=== PATIENT | female | born 1950 | race Caucasian/White ===

== ENCOUNTER 2024-11-27 07:49 | Emergency (ER) | payer OTHER, SELFPAY ==
[2024-11-27 07:50] VITALS: BP 158/90
[2024-11-27 09:17] VITALS: BP 156/52
--- NOTE | 2024-11-27 09:18 | ED.GENMED ---
History of Present Illness
General
Chief Complaint: Fall
Source: patient
Exam Limitations: none
Time Seen by Provider: 11/27/24 08:59
History of Present Illness
History of Present Illness:
73yo right hand dominant female with history of hyperlipidemia, GERD, and carpal tunnel presenting for evaluation after a fall. Patient was walking down the steps around 1 AM this morning in the dark. She missed a step and fell forward, down about
3 steps. She hit the left side of her jaw on the floor. She denies any loss of consciousness. No preceding dizziness or symptoms. She is presenting with pain in her left wrist, low back, bilateral rib cage, and left jaw. She denies any
shortness of breath, abdominal pain, headache, visual changes, vomiting. She does not take any blood thinners.
Phy Exam
General Physical Exam
General Presentation: well appearing and no apparent distress
General Skin: warm and dry
General Habitus: normal
General Mental: alert
ENT Exam
ENT Exam: TM's normal (No hemotympanum ), normocephalic and other (+L mandibular tenderness with mild amount of overlying swelling. No ecchymosis or deformity. Able to open/close jaw. No malocclusion or evidence of dental trauma. )
Additional ENT: No cervical spine tenderness
Eye Exam
Eye Exam: PERRL and conjunctiva normal
Pulmonary Exam
Pulmonary Exam: lungs clear, no respiratory distress, no crackles, no rhonchi, no wheezing and other (+Tenderness to bilateral posterior ribcage. No crepitus or skin changes. Bilateral breath sounds equal. )
Gastrointestinal Exam
Gastrointestinal Exam: non tender, soft and non distended
Neurological Exam
Neurological Exam: alert
Miya Coma Scale
Eye Opening: Spontaneous
Verbal Response: Oriented
Motor Response: Obeys Commands
GCS Total Score: 15
Musculoskeletal Exam
Musculoskeletal Exam: other (L wrist: No deformity. +Tenderness to ulnar styloid. ROM intact. 2+ radial pulse.)
Skin Exam
Skin Exam: normal color and warm/dry
Psychiatric Exam
Psychiatric Exam: normal mood/affect
Course
Orders/Labs/Results
Orders:
Orders
11/27/24 07:54
CR Lumbar Spine Comp Min 4 Vw* Urgent
Comment:
Reason For Exam: pain
Wrist, Left 3 Views CR [CR Wrist - Left Min 3 Views] Urgent
Comment:
Reason For Exam: pain
11/27/24 09:17
CT Cervical Spine W/o Iv Contr Urgent
Comment:
Reason For Exam: head injury, fall
CT Facial Bones W/o Iv Contras Urgent
Comment:
Reason For Exam: L jaw pain, fall
Ribs, Saurabh 4 View W/PA Chest [CR Ribs-saurabh 4 Vw W/pa Chest] Urgent
Comment:
Reason For Exam: bilateral posterior rib pain, fall
11/27/24 09:18
CT Head W/o Iv Contrast Urgent
Comment:
Reason For Exam: Head injury, fall
11/27/24 11:30
[place] Wrist Left-Treatment ONCE
Ibuprofen [Motrin] 600 mg PO NOW STA
Lidocaine [Lidocaine 4% Patch] 1 patch TOPICAL NOW STA
Apply Lidocaine patch(s) to:: low back
Vital Signs
Initial and Last Documented VS:
Initial Vital Signs
Temp Pulse Resp BP Pulse Ox
99.2 F 95 18 158/90 97
11/27/24 07:50 11/27/24 07:50 11/27/24 07:50 11/27/24 07:50 11/27/24 07:50
Last Documented Vital Signs
Temp Pulse Resp BP Pulse Ox
99.2 F 77 16 156/52 97
11/27/24 07:50 11/27/24 09:19 11/27/24 09:19 11/27/24 09:17 11/27/24 09:20
MDM/Problems Addressed
Differential Diagnosis Includes:
73yoF presenting after a mechanical fall down 3 steps at 1am this morning. C/o low back, rib, L wrist, and L jaw pain. No LOC and no blood thinners. She is hypertensive with otherwise stable vitals. She is awake, alert, with a GCS of 15. No external
signs of head trauma. Differential diagnosis includes: fracture, soft tissue injury, sprain
Initial ED plan: Check L wrist/lumbar spine/rib x-rays and CT head/facial bones/cervical spine.
*Pulse Oximetry
SaO2: 97
Oxygen Mode of Delivery: Room air
Patient hypoxic: no (97%)
*Critical Care Note
Total Time (30-74mins, 75-104mins- exclusive of procedures): Not Applicable
Update Note
Update Note:
Wrist x-ray showed no tiny density at the base of the fifth metacarpal, possibly degenerative vs. tiny avulsion fracture. Patient has no tenderness along the 5th metacarpal on exam so less likely fracture. No other injuries seen on imaging. Wrist
brace provided. Supportive care discussed. Advised f/u with PCP. Patient ambulated independently out of ED in stable condition.
ED Attending Note
-
Portions of this chart may have been created with voice recognition software.� Occasional wrong word or��sound alike� substitutions may have occurred due to the inherent limitations of voice recognition software.
Discharge Plan
Departure
Patient Disposition: Home (Routine Discharge)
Date of Disposition: 11/27/24
Time of Disposition: 11:31
Patient with high blood pressure during this ER visit?: Yes
Discharge Problem:
Fall down steps, Low back pain, Injury of left wrist
Instructions: Low back pain - ED discharge instructions
Referrals:
Jerry Perry MD [Family Provider, Family Practice]
Activity Restrictions/Additional Instructions:
Apply ice to affected area. Take Tylenol and ibuprofen as needed for pain. Use lidocaine patches daily (12 hours on, 12 hours off).
Please follow-up with your family doctor. Return to the ER with any new or worsening symptoms.
Interventions
Interventions:
*Risk Screen - Suicide Last Done: 11/27/24 07:50
*General Assessment Last Done: 11/27/24 07:50
*Neglect/Abuse Screening Last Done: 11/27/24 09:19
*ED- Fall Risk Assessment Last Done: 11/27/24 09:18
*ED COVID-19 Vaccine History Last Done: 11/27/24 09:18
*Nursing Disposition Last Done: 11/27/24 11:54
ED-Musculoskeletal Assessment Last Done: 11/27/24 09:19
ED- Neurological Assessment Last Done: 11/27/24 09:19
ED-Skin Assessment Last Done: 11/27/24 09:19
Discharge Date and Time
Discharge Date/Time: 11/27/24 11:57
Print Language: SERBIAN
[2024-11-27] MEDS: MOTRIN 600 MG PO (11:48)
[2024-11-27] MEDS: LIDOCAINE 4% PATCH 1 PATCH TOPICAL (11:48)
== END 2024-11-27 11:57 | disposition home or self-care (01) ==
LOC: EMR 07:49
PROVIDERS: EMERGENCY PHYSICIAN Emergency Medicine; FAMILY PHYSICIAN Family Medicine
DX: M54.50 Low back pain, unspecified (principal); S69.92XA Unspecified injury of left wrist, hand and finger(s), initial encounter; E78.5 Hyperlipidemia, unspecified; K21.9 Gastro-esophageal reflux disease without esophagitis; W10.9XXA Fall (on) (from) unspecified stairs and steps, initial encounter; Y93.01 Activity, walking, marching and hiking; Y92.009 Unspecified place in unspecified non-institutional (private) residence as the place of occurrence of the external cause
CPT/HCPCS: 99284; 70450; 70486; 71111; 72110; 72125; 73110